=== PATIENT | male | born 1980 | race Caucasian/White ===

== ENCOUNTER 2020-08-02 17:48 | Emergency (ER) | payer BC, OTHER ==
[2020-08-02 18:27] LABS: HEMOGLOBIN 17.3 gm/dl (14.0-17.5); RED BLOOD COUNT 5.37 M/UL (4.20-5.50); WHITE BLOOD COUNT 6.4 K/UL (4.5-11.0)
[2020-08-02 18:47] LABS: BUN/CREATININE RATIO 12 (0-10)
[2020-08-02] MEDS ORDERED: DECADRON6 MG PO (19:47)
[2020-08-02] MEDS ORDERED: PROAIR HFA8.5 GM INH (19:49)
[2020-08-02] MEDS ORDERED: DOXYCYCLINE HY100 MG PO (19:49)
== END 2020-08-02 20:09 | disposition home or self-care (01) ==
LOC: ER1 17:48
PROVIDERS: Emergency Medicine
DX: U07.1 COVID-19 (principal); E11.9 Type 2 diabetes mellitus without complications; F17.290 Nicotine dependence, other tobacco product, uncomplicated; Z90.49 Acquired absence of other specified parts of digestive tract
CPT/HCPCS: 36600; 71045; 80053; 82803; 83880; 85025; 85379; 93005; 94664; 96374; 99285; J1100

== ENCOUNTER → 2021-03-02 | Outpatient (CLI) | payer OTHER, BC ==
[~2021-03-02] MED LIST: DECADRON6 MG PO; DOXYCYCLINE HY100 MG PO; PROAIR HFA8.5 GM INH
== END ==
LOC: KOH-I 17:03
DX: S99.922A Unspecified injury of left foot, initial encounter (principal); S89.92XA Unspecified injury of left lower leg, initial encounter; S99.912A Unspecified injury of left ankle, initial encounter; M19.072 Primary osteoarthritis, left ankle and foot
CPT/HCPCS: 73590; 73610; 73630

== ENCOUNTER → 2021-04-20 | Outpatient (CLI) | payer BC | LOC: CT 19:14 | DX: G51.9 Disorder of facial nerve, unspecified (principal); R29.810 Facial weakness | CPT/HCPCS: 70450 ==